=== PATIENT | male | born 1945 | race Caucasian/White ===

== ENCOUNTER 2019-01-26 16:10 | Inpatient (IN) | payer MEDICARE, OTHER | END 2019-01-30 10:15 | disposition home or self-care (01) | LOC: ER 16:10 → TELE 16:11 → TELE-CENTR 23:00 | DX: I95.9 Hypotension, unspecified (principal); I50.42 Chronic combined systolic (congestive) and diastolic (congestive) heart failure; N39.0 Urinary tract infection, site not specified; N28.9 Disorder of kidney and ureter, unspecified; R55 Syncope and collapse; J44.9 Chronic obstructive pulmonary disease, unspecified ==

== ENCOUNTER 2019-06-02 11:25 | Emergency (ER) | payer SELFPAY ==
[~2019-06-02] VITALS: Ht 182.9 cm; Wt 77.1 kg
[~2019-06-02 11:25] MED LIST: ENAL10TA PO; HYDR25TA4 PO; MET50T PO
[2019-06-02] MEDS ORDERED: cloNIDine HCL 0.1 MG TAB PO ONE (11:45)
[2019-06-02 12:28] LABS: Basophils # (auto) 0 uL; Basophils % (auto) 0.4 % (0.0-2.0); Eosinophils # (auto) 0 uL; Eosinophils % (auto) 0.8 % (0.0-7.0); Hematocrit 37.9 % (41.0-53.0); Lymphocytes # (auto) 1.6 uL; Lymphocytes % (auto) 30.5 % (10.0-50.0); Mean Corpuscular Hemoglobin 32.9 pg (28.0-32.0); Mean Corpuscular Hgb Conc. 34.5 g/dL (32.0-36.0); Mean Corpuscular Volume 95.4 fL (80.0-100.0); Monocytes # (auto) 0.5 uL; Monocytes % (auto) 10.1 % (0.0-12.0); Neutrophils # (auto) 3.1 uL; Neutrophils % (auto) 58.2 % (37.0-80.0); Nucleated Red Blood Cells % 0.1 %; Platelet Count (auto) 201 10^3/uL (140-450); Red Blood Cells 3.97 10^6/uL (4.5-5.90); Red Cell Distribution Width 14.2 % (11.8-14.3); White Blood Cell 5.3 10^3/uL (4.4-10.8)
[2019-06-02 12:50] LABS: Albumin 3.8 g/dL (3.4-5.0); Anion Gap 6 (5-15); Blood Urea Nitrogen 32 mg/dL (7-18); Calcium 8.6 mg/dL (8.5-10.1); Carbon Dioxide 26 mmol/L (21-32); Chloride 110 mmol/L (98-107); Glucose 91 mg/dL (74-106); Potassium 4.2 mmol/L (3.5-5.1); Sodium 142 mmol/L (136-145)
[2019-06-02 12:55] LABS: Alanine Aminotransferase 40 U/L (16-61); Alkaline Phosphatase 111 U/L (45-117); Aspartate Aminotransferase 21 U/L (15-37); BUN/Creatinine Ratio 19.5; Bilirubin, Total 0.7 mg/dL (0.2-1.0); GFR African American 53 mL/min; GFR Non-African American 44 mL/min; Total Protein 7.5 g/dL (6.4-8.2)
[2019-06-02 15:37] VITALS: BP 130/92
== END 2019-06-02 15:38 | disposition home or self-care (01) ==
LOC: EDBD 11:25 → ER 11:25
DX: I13.0 Hypertensive heart and chronic kidney disease with heart failure and stage 1 through stage 4 chronic kidney disease, or unspecified chronic kidney disease (principal); N18.3 Chronic kidney disease, stage 3 (moderate); I50.9 Heart failure, unspecified; K21.9 Gastro-esophageal reflux disease without esophagitis
CPT/HCPCS: 36415; 80053; 84484; 85025

== ENCOUNTER 2019-09-21 08:55 | Emergency (ER) | payer OTHER ==
[~2019-09-21] VITALS: Ht 180.3 cm; Wt 99.8 kg
[2019-09-21] MEDS ORDERED: ONDANSETRON HCL 4 MG/2 ML VIAL IV ONE (09:30)
[2019-09-21] MEDS ORDERED: MORPHINE SULFATE 4 MG/ML SYR/VIAL IV ONE (09:30)
[2019-09-21 10:27] LABS: Urine Bacteria NONE SEEN /hpf (None Seen); Urine Blood Negative /uL (Negative); Urine Specific Gravity 1.015 (1.001-1.035); Urine WBC 51 /hpf (0 - 3)
[2019-09-21 11:00] VITALS: BP 125/83
[2019-09-21] MEDS ORDERED: cefTRIAXone 1GM/50ML D5W 50 ML IV ONE (11:15)
== END 2019-09-21 12:25 | disposition home or self-care (01) ==
LOC: EDBD 08:55 → ER 08:55
DX: N45.1 Epididymitis (principal); N50.812 Left testicular pain; N50.811 Right testicular pain; I11.0 Hypertensive heart disease with heart failure; I50.9 Heart failure, unspecified; J44.9 Chronic obstructive pulmonary disease, unspecified; K21.9 Gastro-esophageal reflux disease without esophagitis; Z87.442 Personal history of urinary calculi; Z87.440 Personal history of urinary (tract) infections
CPT/HCPCS: 76870; 81001; 96365; 96375; 99284; J0696; J2270; J2405

== ENCOUNTER 2019-10-21 09:45 | Inpatient (IN) | payer MEDICARE, OTHER ==
[~2019-10-21] VITALS: Ht 182.9 cm; Wt 76.0 kg
[2019-10-21] MEDS ORDERED: SODIUM CHLORIDE 0.9% 1,000 ML IV ONE ×2 (10:03)
[2019-10-21 11:04] LABS: Albumin 3.5 g/dL (3.4-5.0); Calcium 8.6 mg/dL (8.5-10.1); Chloride 110 mmol/L (98-107); Potassium 4.4 mmol/L (3.5-5.1); Sodium 140 mmol/L (136-145)
[2019-10-21 11:13] LABS: Alanine Aminotransferase 23 U/L (16-61); Alkaline Phosphatase 79 U/L (45-117); Anion Gap 6 (5-15); Aspartate Aminotransferase 19 U/L (15-37); BUN/Creatinine Ratio 15.6; Bilirubin, Total 1.7 mg/dL (0.2-1.0); Blood Urea Nitrogen 30 mg/dL (7-18); Carbon Dioxide 24 mmol/L (21-32); GFR African American 44 mL/min; GFR Non-African American 36 mL/min; Glucose 104 mg/dL (74-106); Total Protein 7.5 g/dL (6.4-8.2)
[2019-10-21 13:56] LABS: Basophils # (auto) 0 10 ^3/uL (0-0.2); Basophils % (auto) 0.3 % (0.0-2.0); Eosinophils # (auto) 0 10 ^3/uL (0-0.8); Eosinophils % (auto) 0.1 % (0.0-7.0); Hematocrit 36.1 % (41.0-53.0); Hemoglobin 12.1 g/dL (13.5-17.5); Lymphocytes # (auto) 0.9 10 ^3/uL (0.4-5.4); Lymphocytes % (auto) 15.2 % (10.0-50.0); Mean Corpuscular Hemoglobin 31.2 pg (28.0-32.0); Mean Corpuscular Hgb Conc. 33.5 g/dL (32.0-36.0); Mean Corpuscular Volume 93.3 fL (80.0-100.0); Monocytes # (auto) 0.5 10 ^3/uL (0-1.3); Monocytes % (auto) 8.2 % (0.0-12.0); Neutrophils # (auto) 4.5 10 ^3/uL (1.6-8.6); Neutrophils % (auto) 76.2 % (37.0-80.0); Platelet Count (auto) 141 10^3/uL (140-450); Red Blood Cells 3.87 10^6/uL (4.5-5.90); Red Cell Distribution Width 13.9 % (11.8-14.3)
[2019-10-21 14:21] LABS: Urine Bacteria NONE SEEN /hpf (None Seen); Urine Blood Negative /uL (Negative); Urine Mucus FEW (None Seen); Urine Specific Gravity 1.016 (1.001-1.035); Urine WBC 21 /hpf (0 - 3)
[2019-10-21] MEDS ORDERED: PROMETHAZINE HCL 25 MG/ML 1ML IV PRN (15:15)
[2019-10-21] MEDS ORDERED: TEMAZEPAM 15 MG CAP PO PRN (15:15)
[2019-10-21] MEDS ORDERED: ENOXAPARIN SOD 80 MG/0.8ML SYRINGE SC ONE (15:15)
[2019-10-21] MEDS ORDERED: LACTULOSE 20Gm/30ML SOLN PO PRN (15:15)
[2019-10-21] MEDS ORDERED: cefTRIAXone 1GM/50ML D5W 50 ML IV ONE (15:15)
[2019-10-21] MEDS ORDERED: ALBUTEROL SULF 2.5 MG/0.5ML(0.5%) NEB SOLN NEB PRN (15:15)
[2019-10-21] MEDS ORDERED: ACETAMINOPHEN 500 MG TAB PO PRN (15:15)
[2019-10-21] MEDS ORDERED: MORPHINE SULF INJ 2 MG/ML SYRINGE 1ML IV PRN (15:15)
[2019-10-21] MEDS ORDERED: NITROGLYCERIN 0.4 MG SL TAB SL PRN (15:15)
[2019-10-21 15:41] VITALS: BP 132/87
[2019-10-21] MEDS ORDERED: OSELTAMIVIR 75 MG CAP PO ONE (16:00)
[2019-10-21] MEDS ORDERED: OSELTAMIVIR 30 MG CAP PO SCH ×2 (16:15→22:00)
[2019-10-21] MEDS: methylPREDNISolone SOD SUCC 40 MG/ML VL IV SCH (16:20)
[2019-10-21] MEDS: traMADol HCL 50 MG TAB PO PRN (16:22)
[2019-10-21 16:55] VITALS: BP 124/76
--- NOTE | 2019-10-21 16:55 | NUR ---
Telemetry admit from ER LAZARA CARDENAS admitted to Telemetry unit after SBAR received. Patient oriented to RADHA DONOVANRN primary RN, unit, 287 room, A bed, and unit policies regarding patient care and visiting hours. Patient now on continuous telemetry monitoring, tele box #69 and telemetry reading on arrival to unit is SR 90. Patient placed on bedside oxygen, weighed by bedscale and encouraged to call if they need something. All questions and concerns addressed, patient verbalized understanding.
[2019-10-21 17:00] VITALS: BP 124/76
[2019-10-21] MEDS: SODIUM CHLORIDE 0.9% 1,000 ML IV SCH (17:00)
[2019-10-21] MEDS: IPRATROPIUM BROM 0.5 MG/2.5ML INH SOL NEB SCH (19:00)
[2019-10-21] MEDS: ALBUTEROL SULF 2.5 MG/0.5ML(0.5%) NEB SOLN NEB SCH (19:00)
--- NOTE | 2019-10-21 19:40 | NUR ---
Opening Shift Note Assumed care of patient, awake and alert. No S/S of distress/SOB or pain. Instructed on POC and to call for assist PRN. Bed in lowest position, call light within reach, side rails x2. Fall precautions in place. Will continue to monitor for changes Q1hr and PRN.
[2019-10-21 22:00] VITALS: BP 104/76
[2019-10-21] MEDS: FAMOTIDINE 20 MG TAB PO SCH (22:04)
[2019-10-21] MEDS: ENOXAPARIN SOD 80 MG/0.8ML SYRINGE SC SCH (22:04)
[2019-10-21 22:52] VITALS: BP 135/100
[2019-10-22] MEDS: IPRATROPIUM BROM 0.5 MG/2.5ML INH SOL NEB SCH ×4 (00:07→18:42)
[2019-10-22] MEDS: ALBUTEROL SULF 2.5 MG/0.5ML(0.5%) NEB SOLN NEB SCH ×4 (00:07→18:43)
[2019-10-22] MEDS: methylPREDNISolone SOD SUCC 40 MG/ML VL IV SCH ×2 (02:58→15:26)
[2019-10-22] MEDS: SODIUM CHLORIDE 0.9% 1,000 ML IV SCH ×3 (02:58→21:07)
[2019-10-22 05:00] VITALS: BP 134/78
[2019-10-22 06:04] LABS: Basophils # (auto) 0 10 ^3/uL (0-0.2); Basophils % (auto) 0.1 % (0.0-2.0); Eosinophils # (auto) 0 10 ^3/uL (0-0.8); Hematocrit 34.1 % (41.0-53.0); Hemoglobin 11.8 g/dL (13.5-17.5); Lymphocytes # (auto) 0.5 10 ^3/uL (0.4-5.4); Lymphocytes % (auto) 7.8 % (10.0-50.0); Mean Corpuscular Hemoglobin 31.9 pg (28.0-32.0); Mean Corpuscular Hgb Conc. 34.4 g/dL (32.0-36.0); Mean Corpuscular Volume 92.6 fL (80.0-100.0); Monocytes # (auto) 0.3 10 ^3/uL (0-1.3); Monocytes % (auto) 4.4 % (0.0-12.0); Neutrophils # (auto) 5.1 10 ^3/uL (1.6-8.6); Neutrophils % (auto) 87.7 % (37.0-80.0); Nucleated Red Blood Cells % 0.1 %; Platelet Count (auto) 127 10^3/uL (140-450); Red Blood Cells 3.69 10^6/uL (4.5-5.90); Red Cell Distribution Width 13.9 % (11.8-14.3); White Blood Cell 5.8 10^3/uL (4.4-10.8)
[2019-10-22 06:14] LABS: Calcium 8.2 mg/dL (8.5-10.1); Potassium 4.7 mmol/L (3.5-5.1)
[2019-10-22 06:17] LABS: Albumin 2.9 g/dL (3.4-5.0); BUN/Creatinine Ratio 16.7
[2019-10-22 06:20] LABS: Total Protein 6.7 g/dL (6.4-8.2)
[2019-10-22 09:00] VITALS: BP 125/72
[2019-10-22] MEDS: cefTRIAXone 1GM/50ML D5W 50 ML IV SCH (09:18)
[2019-10-22] MEDS: FAMOTIDINE 20 MG TAB PO SCH ×2 (09:19→21:48)
[2019-10-22] MEDS: traMADol HCL 50 MG TAB PO PRN ×3 (09:19→21:50)
[2019-10-22] MEDS: ENOXAPARIN SOD 80 MG/0.8ML SYRINGE SC SCH ×2 (09:19→21:49)
[2019-10-22 13:00] VITALS: BP 109/55
--- NOTE | 2019-10-22 13:23 | NUR ---
Doctor Lees rounding.
[2019-10-22] MEDS ORDERED: guaiFENesin-DM 100/10mg/5ml SYR PO PRN (15:30)
[2019-10-22 17:00] VITALS: BP 116/68
--- NOTE | 2019-10-22 18:40 | NUR ---
Doctor Martinez miller.
--- NOTE | 2019-10-22 19:30 | NUR ---
Opening Shift Note Assumed care of patient, awake and alert. No S/S of distress/SOB or pain. Instructed on POC and to call for assist PRN. Bed in lowest locked position, call light within reach, side rails up X2, fall precautions in place. Will continue to monitor for changes Q1hr and PRN.
[2019-10-22 21:43] VITALS: BP 120/81
[2019-10-23] MEDS: ALBUTEROL SULF 2.5 MG/0.5ML(0.5%) NEB SOLN NEB SCH ×3 (00:36→11:29)
[2019-10-23] MEDS: IPRATROPIUM BROM 0.5 MG/2.5ML INH SOL NEB SCH ×3 (00:36→11:30)
[2019-10-23 02:18] VITALS: BP 162/104
[2019-10-23 05:37] VITALS: BP 150/90
[2019-10-23] MEDS: methylPREDNISolone SOD SUCC 40 MG/ML VL IV SCH (06:05)
[2019-10-23 08:00] VITALS: BP 139/93
--- NOTE | 2019-10-23 08:00 | NUR ---
Opening Shift Note Assumed care of patient, patient comfortably resting in bed, awake and alert. No S/S of distress/SOB or pain. Guan catheter intact and draining to gravity. Instructed on POC and to call for assist PRN. Bed at lowest locked position and call light within reach. Will continue to monitor for changes Q1hr and PRN.
[2019-10-23 08:31] VITALS: BP 139/93
[2019-10-23] MEDS: SODIUM CHLORIDE 0.9% 1,000 ML IV SCH (09:00)
--- NOTE | 2019-10-23 09:15 | NUR ---
Patient c/o abdominal pain that radiates to the neck. Patient rates pain level 6/10, will administer medications per MD orders. Will continue to monitor PRN. Addendum: 10/23/19 at 1147 by Edyta Paredes RN *10:31 Pain reassessment Patient is comfortably resting in bed, states pain is 2/10.
[2019-10-23] MEDS: cefTRIAXone 1GM/50ML D5W 50 ML IV SCH (09:30)
[2019-10-23] MEDS: FAMOTIDINE 20 MG TAB PO SCH (09:31)
[2019-10-23] MEDS: traMADol HCL 50 MG TAB PO PRN (09:31)
[2019-10-23] MEDS: ENOXAPARIN SOD 80 MG/0.8ML SYRINGE SC SCH (10:00)
--- NOTE | 2019-10-23 10:20 | NUR ---
Dr. Alicia at bedside.
--- NOTE | 2019-10-23 11:59 | NUR ---
paged for patient companion social media director regarding patient's discharge and home health. Addendum: 10/23/19 at 1235 by Edyta Paredes RN Sara storage worker asked me to fax patient's H&P, discharge order and face sheet to [facility] fax #[phone], phone # [phone]. Addendum: 10/23/19 at 1420 by Edyta Paredes RN All requested paperwork faxed to [facility] fax [phone]
[2019-10-23 12:38] VITALS: BP 136/83
--- NOTE | 2019-10-23 13:20 | NUR ---
Patient c/o elva britt MD for further orders. Addendum: 10/23/19 at 1322 by Edyta Paredes RN order received for one time order 4MG Zofran PO, orders read back and verified
[2019-10-23] MEDS ORDERED: ONDANSETRON ODT 4 MG TAB PO ONE (13:30)
--- NOTE | 2019-10-23 14:13 | NUR ---
Discharge instructions given as ordered. Encourage to follow up with PMD as instructed. All questions and concerns addressed. Patient verbalized understanding. Medication reconciliation form completed and copy given to patient. IV removed with catheter intact, pressure dressing applied. Per doctor's orders patient was discharged with collier catheter, education provided, Patient acknowledged understanding. Telemetry unit returned to ICU. Patient taken to main lobby via wheelchair with all personal belongings, per patients request. Granddaughter Eunice in route. No c/o nausea/vomiting. No c/o pain. No distress noted at time of departure.
--- NOTE | 2019-10-25 09:53 | NUR ---
I called [facility] and spoke with Stacey, she said this patient was with them previously and they can accept patient back on service-I faxed requested order, face sheet and H&P to [facility] [phone].
== END 2019-10-23 14:20 | disposition home health service (06) | DRG 190 ==
LOC: EDBD 09:45 → ER 09:45 → EDUNIT# 09:45 → TELE 09:46 → TELE-WESTW 16:52
PROVIDERS: ADMIT Internal Medicine; ATTEND Family Medicine
DX: J44.1 Chronic obstructive pulmonary disease with (acute) exacerbation (principal); N18.6 End stage renal disease; I13.2 Hypertensive heart and chronic kidney disease with heart failure and with stage 5 chronic kidney disease, or end stage renal disease; N17.9 Acute kidney failure, unspecified; I95.9 Hypotension, unspecified; N32.3 Diverticulum of bladder; I50.9 Heart failure, unspecified; K21.9 Gastro-esophageal reflux disease without esophagitis; E86.0 Dehydration; R33.9 Retention of urine, unspecified; Z79.899 Other long term (current) drug therapy; Z85.9 Personal history of malignant neoplasm, unspecified; Z81.8 Family history of other mental and behavioral disorders; Z87.891 Personal history of nicotine dependence; Z85.46 Personal history of malignant neoplasm of prostate
CPT/HCPCS: 36415; 70450; 71045; 74176; 78582; 80053; 81001; 83605; 83880; 84484; 85025; 85379; 87040; 87070; 87081; 87086; 87205; 87804; 93005; 94640; 96361; 96365; 96372; G0378; G9035; J0696; Q0162

== ENCOUNTER 2019-10-24 11:21 | Emergency (ER) | payer MEDICARE, OTHER ==
[~2019-10-24] VITALS: Ht 182.9 cm; Wt 68.0 kg
[2019-10-24] MEDS ORDERED: LIDOCAINE 2% JELLY 11ml (GLYDO) UR ONE (12:15)
[2019-10-24 12:28] VITALS: BP 136/87
[2019-10-24] MEDS ORDERED: ACETAMINOPHEN 325 MG TAB PO ONE (12:30)
[2019-10-24 12:33] LABS: Urine Bacteria NONE SEEN /hpf (None Seen); Urine Blood TRACE /uL (Negative); Urine Hyaline Cast FEW /lpf (0 - 2); Urine Mucus FEW (None Seen); Urine Specific Gravity 1.009 (1.001-1.035); Urine WBC 2 /hpf (0 - 3)
== END 2019-10-24 13:28 | disposition home or self-care (01) ==
LOC: ER 11:21
DX: T83.091A Other mechanical complication of indwelling urethral catheter, initial encounter (principal); N39.0 Urinary tract infection, site not specified; N32.3 Diverticulum of bladder; J44.9 Chronic obstructive pulmonary disease, unspecified; E11.9 Type 2 diabetes mellitus without complications; I11.0 Hypertensive heart disease with heart failure; I50.9 Heart failure, unspecified; Z87.891 Personal history of nicotine dependence; Y92.89 Other specified places as the place of occurrence of the external cause
CPT/HCPCS: 51702; 81001

== ENCOUNTER → 2019-11-01 | Emergency (ER) | payer OTHER ==
[~2019-11-01] VITALS: Ht 182.9 cm; Wt 72.6 kg
[~2019-11-01] MED LIST changes: +CHOL20009 PO; -ENAL10TA PO; +ENAL10TA12 PO; +LEVO500T21 PO
[2019-11-01 15:20] VITALS: BP 132/82
== END | disposition home or self-care (01) ==
LOC: ER 15:09
DX: T83.018A Breakdown (mechanical) of other urinary catheter, initial encounter (principal); I11.0 Hypertensive heart disease with heart failure; I50.9 Heart failure, unspecified; J44.9 Chronic obstructive pulmonary disease, unspecified; K21.9 Gastro-esophageal reflux disease without esophagitis; Z87.891 Personal history of nicotine dependence; Z87.442 Personal history of urinary calculi
CPT/HCPCS: 51702

== ENCOUNTER 2019-11-03 10:47 | Emergency (ER) | payer OTHER ==
[~2019-11-03] VITALS: Ht 182.9 cm; Wt 69.9 kg
[~2019-11-03 10:47] MED LIST changes: -CHOL20009 PO; -LEVO500T21 PO
[2019-11-03 11:06] VITALS: BP 138/84
== END 2019-11-03 11:30 | disposition home or self-care (01) ==
LOC: ER 10:47
DX: Z46.6 Encounter for fitting and adjustment of urinary device (principal); I11.0 Hypertensive heart disease with heart failure; I50.9 Heart failure, unspecified; J44.9 Chronic obstructive pulmonary disease, unspecified; K21.9 Gastro-esophageal reflux disease without esophagitis; Z87.891 Personal history of nicotine dependence; Z87.442 Personal history of urinary calculi
CPT/HCPCS: 81002

== ENCOUNTER → 2019-12-02 | Outpatient (CLI) | payer OTHER ==
[~2019-12-02] MED LIST changes: +ENAL10TA PO; -ENAL10TA12 PO
== END | disposition home or self-care (01) ==
LOC: LAB 16:00
PROVIDERS: ATTEND Urology
DX: N39.0 Urinary tract infection, site not specified (principal)
CPT/HCPCS: 87086

== ENCOUNTER 2019-12-28 08:47 | Inpatient (IN) | payer OTHER, MEDICARE ==
[~2019-12-28] VITALS: Ht 182.9 cm; Wt 80.0 kg
[2019-12-28] MEDS ORDERED: SODIUM CHLORIDE 0.9% 1,000 ML IV ONE ×3 (09:08)
[2019-12-28] MEDS ORDERED: methylPREDNISolone SOD SUCC 125 MG/2 ML VL IV ONE (09:15)
[2019-12-28] MEDS ORDERED: AZITHROMYCIN 500MG/ 250ML 250 ML IV ONE (09:15)
[2019-12-28] MEDS ORDERED: cefTRIAXone 1GM/50ML D5W 50 ML IV ONE (09:15)
[2019-12-28] MEDS ORDERED: ONDANSETRON HCL 4 MG/2 ML VIAL ONE (09:27)
[2019-12-28] MEDS ORDERED: ONDANSETRON HCL 4 MG/2 ML VIAL IV ONE (09:30)
[2019-12-28] MEDS ORDERED: MORPHINE SULF INJ 2 MG/ML SYRINGE 1ML IV ONE (09:30)
[2019-12-28 09:40] LABS: Basophils # (auto) 0 10 ^3/uL (0-0.2); Basophils % (auto) 0.2 % (0.0-2.0); Eosinophils # (auto) 0 10 ^3/uL (0-0.8); Hematocrit 41.2 % (41.0-53.0); Hemoglobin 13.7 g/dL (13.5-17.5); Lymphocytes # (auto) 0.7 10 ^3/uL (0.4-5.4); Lymphocytes % (auto) 12.5 % (10.0-50.0); Mean Corpuscular Hgb Conc. 33.3 g/dL (32.0-36.0); Mean Corpuscular Volume 93.1 fL (80.0-100.0); Monocytes # (auto) 0.5 10 ^3/uL (0-1.3); Neutrophils # (auto) 4.6 10 ^3/uL (1.6-8.6); Neutrophils % (auto) 78.3 % (37.0-80.0); Nucleated Red Blood Cells % 0.2 %; Platelet Count (auto) 163 10^3/uL (140-450); Red Blood Cells 4.42 10^6/uL (4.5-5.90); Red Cell Distribution Width 14.3 % (11.8-14.3); White Blood Cell 5.9 10^3/uL (4.4-10.8)
[2019-12-28 10:01] LABS: Albumin 3.7 g/dL (3.4-5.0); Anion Gap 6 (5-15); Blood Urea Nitrogen 32 mg/dL (7-18); Calcium 8.5 mg/dL (8.5-10.1); Carbon Dioxide 23 mmol/L (21-32); Chloride 109 mmol/L (98-107); Glucose 99 mg/dL (74-106); Potassium 4.6 mmol/L (3.5-5.1); Sodium 138 mmol/L (136-145)
[2019-12-28 10:06] LABS: Urine Bacteria MOD /hpf (None Seen); Urine Blood 3+ /uL (Negative); Urine Specific Gravity 1.017 (1.001-1.035); Urine WBC 1518 /hpf (0 - 3); Urine WBC Clumps PRESENT /hpf (None Seen)
[2019-12-28 10:09] LABS: Alanine Aminotransferase 21 U/L (16-61); Alkaline Phosphatase 112 U/L (45-117); Aspartate Aminotransferase 17 U/L (15-37); BUN/Creatinine Ratio 17.2; Bilirubin, Total 1.2 mg/dL (0.2-1.0); GFR African American 46 mL/min; GFR Non-African American 38 mL/min; Lactate Dehydrogenase 168 U/L (87-241); Total Protein 7.9 g/dL (6.4-8.2)
[2019-12-28 10:15] LABS: INR 1.02 (0.9-1.15); Partial Thromboplastin Time 27.1 sec (23.64-32.05)
[2019-12-28] MEDS ORDERED: IPRATROPIUM BROM 0.5 MG/2.5ML INH SOL NEB PRN (11:00)
[2019-12-28] MEDS ORDERED: ONDANSETRON HCL 4 MG/2 ML VIAL IV PRN (11:00)
[2019-12-28] MEDS ORDERED: ALBUTEROL SULF 2.5 MG/0.5ML(0.5%) NEB SOLN NEB PRN (11:00)
[2019-12-28] MEDS ORDERED: MORPHINE SULF INJ 2 MG/ML SYRINGE 1ML IV PRN ×2 (11:00)
[2019-12-28] MEDS ORDERED: NITROGLYCERIN 0.4 MG SL TAB SL PRN (11:00)
[2019-12-28] MEDS: SODIUM CHLORIDE 0.9% 1,000 ML IV SCH (11:04)
[2019-12-28 11:15] VITALS: BP 146/96
[2019-12-28] MEDS: ACETAMINOPHEN 500 MG TAB PO PRN (11:25)
--- NOTE | 2019-12-28 12:50 | NUR ---
MS admit from ER RONALDLAZARA admitted to med-surg after SBAR received. Patient oriented to Sherice Valladares, RN primary RN, unit, room, bed, and unit policies regarding patient care and visiting hours. Patient weighed by bedscale and encouraged to call if they need something. All questions and concerns addressed, patient verbalized understanding. Bed is set in lowest locked position with side rails up x2 for safety and call light is within reach.
[2019-12-28 13:00] VITALS: BP 110/71
[2019-12-28] MEDS ORDERED: CHOL20009 PO (16:16)
[2019-12-28 16:36] VITALS: BP 99/70
--- NOTE | 2019-12-28 17:58 | NUR ---
MRSA swab obtained and sent to lab
--- NOTE | 2019-12-28 18:38 | NUR ---
PT ON ROOM AIR EATING DINNER WITH NO DISTRESS NOTED. SPO2 94% HR 90, RR 16. PT DENIES SOB AT THIS TIME. BS CLEAR AND DECREASED. NO TX GIVEN AT THIS TIME.
[2019-12-28] MEDS: METOPROLOL TARTRATE 50 MG TAB PO SCH (21:53)
[2019-12-28 22:00] VITALS: BP 107/73
[2019-12-29] MEDS: SODIUM CHLORIDE 0.9% 1,000 ML IV SCH ×3 (02:26→16:54)
[2019-12-29 05:00] VITALS: BP 110/70
[2019-12-29 05:48] LABS: Basophils # (auto) 0 10 ^3/uL (0-0.2); Basophils % (auto) 0.1 % (0.0-2.0); Eosinophils # (auto) 0 10 ^3/uL (0-0.8); Hematocrit 34.5 % (41.0-53.0); Hemoglobin 11.8 g/dL (13.5-17.5); Lymphocytes # (auto) 0.6 10 ^3/uL (0.4-5.4); Lymphocytes % (auto) 9.8 % (10.0-50.0); Mean Corpuscular Hemoglobin 31.4 pg (28.0-32.0); Mean Corpuscular Hgb Conc. 34.1 g/dL (32.0-36.0); Monocytes # (auto) 0.7 10 ^3/uL (0-1.3); Monocytes % (auto) 11.2 % (0.0-12.0); Neutrophils # (auto) 5.1 10 ^3/uL (1.6-8.6); Neutrophils % (auto) 78.9 % (37.0-80.0); Platelet Count (auto) 140 10^3/uL (140-450); Red Blood Cells 3.75 10^6/uL (4.5-5.90); Red Cell Distribution Width 13.9 % (11.8-14.3); White Blood Cell 6.5 10^3/uL (4.4-10.8)
[2019-12-29 06:07] LABS: Potassium 4.7 mmol/L (3.5-5.1)
[2019-12-29 06:13] LABS: BUN/Creatinine Ratio 21.5
--- NOTE | 2019-12-29 06:40 | NUR ---
Respiratory note: PT ASSESSED FOR PRN TX. HR 66, RR 16, POX 99% ON RA, BS ARE CLR/DIM. NO SOB OR DISTRESS NOTED AT THIS TIME. PT WAS NOTIFY TO HAVE RN PAGE RT FOR NEEDED MN TX.
[2019-12-29 09:00] VITALS: BP 127/67
[2019-12-29] MEDS: cefTRIAXone 1GM/50ML D5W 50 ML IV SCH (09:00)
[2019-12-29] MEDS: HYDROcodone-ACET 5/325MG TAB PO PRN ×2 (09:49→20:13)
[2019-12-29] MEDS: FAMOTIDINE 20 MG TAB PO SCH (09:49)
[2019-12-29] MEDS: METOPROLOL TARTRATE 50 MG TAB PO SCH ×2 (09:49→22:08)
[2019-12-29 13:00] VITALS: BP 118/72
--- NOTE | 2019-12-29 18:07 | NUR ---
Respiratory note: ASSESSMENT FOR PRN MED NEB TX. PT PRESENTING NO RESPIRATORY DISTRESS AT THIS TIME. HR 63, SPO2 94% ON ROOM AIR, RR 16, B/S DIMINISHED. MED NEB TX NOT INDICATED AT THIS TIME. PT AWARE OF PRN TX AND TO HAVE RT PAGED IF NEEDED. WILL CONTINUE TO MONITOR.
[2019-12-29 22:00] VITALS: BP 124/72
--- NOTE | 2019-12-30 00:05 | NUR ---
IV removal IV DC'd with sterile technique, catheter fully intact. Pressure dressing applied to site. Patient tolerated procedure well.
--- NOTE | 2019-12-30 00:08 | NUR ---
IV insertion IV access obtained, via clean sterile technique by inserting 18 gauge catheter at right forearm after 1 attempt. IV secured properly. No trauma to site. Patient tolerated procedure well.
[2019-12-30 05:00] VITALS: BP 148/91
--- NOTE | 2019-12-30 07:30 | NUR ---
Opening Shift Note Assumed care of patient, awake and alert. No S/S of distress/SOB or pain. Instructed on POC and to call for assist PRN, will continue to monitor for changes Q1hr and PRN.
[2019-12-30 09:00] VITALS: BP 130/92
[2019-12-30] MEDS: cefTRIAXone 1GM/50ML D5W 50 ML IV SCH (09:28)
[2019-12-30] MEDS: METOPROLOL TARTRATE 50 MG TAB PO SCH (09:29)
[2019-12-30] MEDS: FAMOTIDINE 20 MG TAB PO SCH (09:32)
[2019-12-30] MEDS: ACETAMINOPHEN 500 MG TAB PO PRN (09:40)
[2019-12-30] MEDS: SODIUM CHLORIDE 0.9% 1,000 ML IV SCH ×2 (09:41→13:00)
[2019-12-30 13:00] VITALS: BP 124/77
--- NOTE | 2019-12-30 14:10 | NUR ---
Assessment Patient is a 74-year-old male who is alert and oriented. Prior to admission patient lived with friends and functioned independently. Patient can care for his own ADLs. Patient informed me he has a cane for home use. Per patient he will return to his prior living arrangements post discharge and family will transport patient home. Advised patient there is a Social Service consult to resume home health service. Per patient he is on service with [facility] [phone]. Informed patient clinical information will be faxed to agency. Informed patient he has the right to participate in all discharge planning. Patient verbalized understanding and agreed to discharge plan home. Per Jorge with [facility] they will resume service within 24-48hrs upon d/. Addendum: 12/30/19 at 1414 by STEPHANIE VILCHIS Amended: Links added.
[2019-12-30 14:43] VITALS: BP 124/77
[2019-12-30] MEDS: HYDROcodone-ACET 5/325MG TAB PO PRN (16:25)
--- NOTE | 2019-12-30 16:56 | NUR ---
Discharge instructions given as ordered. Encourage to follow up with PMD as instructed. All questions and concerns addressed. Patient verbalized understanding. Medication reconciliation form completed and copy given to patient. IV removed with catheter intact, pressure dressing applied, pt came in with nando from home. Patient taken to vehicle via wheelchair with all personal belongings, accompanied by staff and family member. No distress noted at time of departure.
== END 2019-12-30 17:00 | disposition home health service (06) | DRG 690 ==
LOC: ER 08:47 → EDBD 08:47 → OVERFLOW 08:48 → CENTRAL 12:53
PROVIDERS: ADMIT Nurse Practitioner Acute Care; ATTEND Family Medicine
DX: N30.00 Acute cystitis without hematuria (principal); J44.1 Chronic obstructive pulmonary disease with (acute) exacerbation; I13.0 Hypertensive heart and chronic kidney disease with heart failure and stage 1 through stage 4 chronic kidney disease, or unspecified chronic kidney disease; N18.3 Chronic kidney disease, stage 3 (moderate); N32.3 Diverticulum of bladder; K21.9 Gastro-esophageal reflux disease without esophagitis; I50.9 Heart failure, unspecified; Z82.0 Family history of epilepsy and other diseases of the nervous system; Z85.46 Personal history of malignant neoplasm of prostate; Z87.440 Personal history of urinary (tract) infections; Z87.442 Personal history of urinary calculi; Z87.891 Personal history of nicotine dependence
CPT/HCPCS: 36415; 71045; 80048; 80053; 81001; 82728; 83605; 83615; 83880; 84484; 85025; 85610; 85730; 87040; 87081; 87086; 87088; 87186; 93005; 99291; G0378; J0696; J2405

== ENCOUNTER 2020-03-21 09:06 | Emergency (ER) | payer MEDICARE, OTHER ==
[~2020-03-21] VITALS: Ht 182.9 cm; Wt 72.6 kg
[~2020-03-21 09:06] MED LIST changes: +CHOL20009 PO; -ENAL10TA PO; +ENAL10TA12 PO
[2020-03-21 10:01] LABS: Basophils # (auto) 0 10 ^3/uL (0-0.2); Basophils % (auto) 0.2 % (0.0-2.0); Eosinophils # (auto) 0 10 ^3/uL (0-0.8); Eosinophils % (auto) 0.1 % (0.0-7.0); Hematocrit 37.6 % (41.0-53.0); Hemoglobin 12.5 g/dL (13.5-17.5); Lymphocytes # (auto) 0.9 10 ^3/uL (0.4-5.4); Lymphocytes % (auto) 17.1 % (10.0-50.0); Mean Corpuscular Hemoglobin 31.3 pg (28.0-32.0); Mean Corpuscular Hgb Conc. 33.4 g/dL (32.0-36.0); Mean Corpuscular Volume 93.8 fL (80.0-100.0); Monocytes # (auto) 0.6 10 ^3/uL (0-1.3); Monocytes % (auto) 11.1 % (0.0-12.0); Neutrophils # (auto) 3.8 10 ^3/uL (1.6-8.6); Neutrophils % (auto) 71.5 % (37.0-80.0); Platelet Count (auto) 179 10^3/uL (140-450); Red Cell Distribution Width 13.8 % (11.8-14.3); White Blood Cell 5.3 10^3/uL (4.4-10.8)
[2020-03-21 10:28] LABS: Albumin 3.2 g/dL (3.4-5.0); Anion Gap 5 (5-15); Blood Urea Nitrogen 30 mg/dL (7-18); Calcium 8.1 mg/dL (8.5-10.1); Carbon Dioxide 24 mmol/L (21-32); Chloride 111 mmol/L (98-107); Glucose 90 mg/dL (74-106); Potassium 4.3 mmol/L (3.5-5.1); Sodium 140 mmol/L (136-145)
[2020-03-21 10:33] LABS: Alanine Aminotransferase 31 U/L (16-61); Alkaline Phosphatase 113 U/L (45-117); Aspartate Aminotransferase 19 U/L (15-37); BUN/Creatinine Ratio 15.5; Bilirubin, Total 1.5 mg/dL (0.2-1.0); GFR African American 44 mL/min; GFR Non-African American 36 mL/min; Total Protein 6.9 g/dL (6.4-8.2)
[2020-03-21 11:23] LABS: Urine Bacteria FEW /hpf (None Seen); Urine Blood 2+ /uL (Negative); Urine Mucus FEW (None Seen); Urine Specific Gravity 1.013 (1.001-1.035); Urine WBC 263 /hpf (0 - 3)
[2020-03-21] MEDS ORDERED: cefTRIAXone 1GM/50ML D5W 50 ML IV ONE (12:00)
[2020-03-21 13:44] VITALS: BP 126/77
== END 2020-03-21 13:45 | disposition other institution (70) ==
LOC: ER 09:06 → EDBD 09:06 → ER 13:45
DX: T83.9XXA Unspecified complication of genitourinary prosthetic device, implant and graft, initial encounter (principal); N39.0 Urinary tract infection, site not specified; I12.9 Hypertensive chronic kidney disease with stage 1 through stage 4 chronic kidney disease, or unspecified chronic kidney disease; N18.3 Chronic kidney disease, stage 3 (moderate); E86.0 Dehydration; J44.9 Chronic obstructive pulmonary disease, unspecified; K21.9 Gastro-esophageal reflux disease without esophagitis; Z87.891 Personal history of nicotine dependence; Z79.899 Other long term (current) drug therapy
CPT/HCPCS: 36415; 71045; 74176; 80053; 81001; 84154; 84484; 85025; 93005; 96365; 99285; J0696

== ENCOUNTER 2020-03-28 08:45 | Emergency (ER) | payer OTHER ==
[~2020-03-28] VITALS: Ht 182.9 cm; Wt 72.6 kg
[2020-03-28 10:15] VITALS: BP 165/63
== END 2020-03-28 10:15 | disposition home or self-care (01) ==
LOC: ER 08:45
DX: Z46.6 Encounter for fitting and adjustment of urinary device (principal)

== ENCOUNTER 2020-04-21 09:32 | Inpatient (IN) | payer MEDICARE, OTHER ==
[~2020-04-21] VITALS: Ht 182.9 cm; Wt 78.7 kg
[2020-04-21] MEDS ORDERED: ACETAMINOPHEN 325 MG TAB PO ONE (09:45)
[2020-04-21] MEDS ORDERED: cefTRIAXone 1GM/50ML D5W 50 ML IV ONE ×2 (09:51→10:00)
[2020-04-21] MEDS ORDERED: SODIUM CHLORIDE 0.9% 1,000 ML IV ONE (10:00)
[2020-04-21] MEDS ORDERED: DexAMETHasone SOD PHOS 10MG/1ML VIAL INJ IV ONE (10:00)
[2020-04-21 10:23] LABS: Basophils # (auto) 0 10 ^3/uL (0-0.2); Basophils % (auto) 0.1 % (0.0-2.0); Eosinophils # (auto) 0 10 ^3/uL (0-0.8); Hematocrit 41.8 % (41.0-53.0); Lymphocytes # (auto) 0.7 10 ^3/uL (0.4-5.4); Lymphocytes % (auto) 6.2 % (10.0-50.0); Mean Corpuscular Hemoglobin 31.5 pg (28.0-32.0); Mean Corpuscular Hgb Conc. 33.4 g/dL (32.0-36.0); Mean Corpuscular Volume 94.3 fL (80.0-100.0); Monocytes # (auto) 1.1 10 ^3/uL (0-1.3); Monocytes % (auto) 10.6 % (0.0-12.0); Neutrophils # (auto) 8.9 10 ^3/uL (1.6-8.6); Neutrophils % (auto) 83.1 % (37.0-80.0); Nucleated Red Blood Cells % 0.1 %; Platelet Count (auto) 167 10^3/uL (140-450); Red Blood Cells 4.44 10^6/uL (4.5-5.90); Red Cell Distribution Width 14.4 % (11.8-14.3); White Blood Cell 10.7 10^3/uL (4.4-10.8)
[2020-04-21 10:39] LABS: INR 1.05 (0.9-1.15); Partial Thromboplastin Time 25.6 sec (23.0-31.2)
[2020-04-21 10:41] LABS: Urine Bacteria FEW /hpf (None Seen); Urine Blood 1+ /uL (Negative); Urine Mucus FEW (None Seen); Urine Specific Gravity 1.012 (1.001-1.035); Urine WBC 304 /hpf (0 - 3)
[2020-04-21 10:46] LABS: Albumin 3.5 g/dL (3.4-5.0); Anion Gap 8 (5-15); Blood Urea Nitrogen 32 mg/dL (7-18); Calcium 8.7 mg/dL (8.5-10.1); Carbon Dioxide 22 mmol/L (21-32); Chloride 114 mmol/L (98-107); Glucose 125 mg/dL (74-106); Magnesium 2.7 mg/dL (1.6-2.6); Sodium 144 mmol/L (136-145)
[2020-04-21 10:49] LABS: Lactic Acid w/Reflex 2.5 mmol/L (0.4-2.0)
[2020-04-21 10:55] LABS: Alanine Aminotransferase 27 U/L (16-61); Alkaline Phosphatase 97 U/L (45-117); Aspartate Aminotransferase 21 U/L (15-37); BUN/Creatinine Ratio 14.6; Bilirubin, Total 2.2 mg/dL (0.2-1.0); GFR African American 38 mL/min; GFR Non-African American 31 mL/min; Lactate Dehydrogenase 202 U/L (87-241); Total Protein 7.9 g/dL (6.4-8.2)
[2020-04-21 10:56] LABS: CRP High Sensitivity > 19.0 mg/dL (< 0.3)
[2020-04-21] MEDS ORDERED: MORPHINE SULF INJ 2 MG/ML SYRINGE 1ML IV PRN (13:15)
[2020-04-21] MEDS ORDERED: LABETALOL HCL 5 MG/ML 4ML SYRINGE IV PRN (13:15)
[2020-04-21] MEDS ORDERED: NITROGLYCERIN 0.4 MG SL TAB SL PRN (13:15)
[2020-04-21] MEDS ORDERED: ENALAPRILAT 1.25 MG/ML-1ML VIAL IV PRN (13:45)
[2020-04-21] MEDS: D5W/SOD CHLO 0.9% 1,000 ML IV SCH ×2 (14:01→23:43)
[2020-04-21] MEDS: PIPERACILLIN-TAZOB 2.25GM 50 ML IV SCH ×2 (14:01→19:41)
[2020-04-21 18:00] VITALS: BP 109/78
--- NOTE | 2020-04-21 18:00 | NUR ---
Telemetry admit from ER LAZARA CARDENAS admitted to Telemetry unit after SBAR received. Patient oriented to AGUSTIN HUDDLESTON, RN primary RN, unit, room, bed, and unit policies regarding patient care and visiting hours. Patient now on continuous telemetry monitoring, tele box # 1. Patient placed on bedside oxygen, weighed by bedscale and encouraged to call if they need something. All questions and concerns addressed, patient verbalized understanding. Note: VS: 109/78, 100, 94%. 20, 98.0. No complaints of pain or discomfort at this time.
--- NOTE | 2020-04-21 18:28 | NUR ---
Received diet order from Hospitalist, Dr. Woods. Order placed as received.
--- NOTE | 2020-04-21 19:06 | NUR ---
Med Rec Daughter, Eunice Hunter, , will call back to update med rec
--- NOTE | 2020-04-21 19:30 | NUR ---
Opening Shift Note Assumed care of patient, from Nelly AGUILERA. Upon entering room patient noted sitting up in bed with even and unlabored respirations watching television. Patient is awake and alert x3, patient reoriented to time, will continue to reorient patient as needed and throughout shift. Patient denies pain or shortness of breath at this time. Patient is on 1L/min, NC, no sign/symptoms of distress noted or verbalized at this time. Instructed on plan of care and encouraged patient to call for assistance as needed, patient verbalized understanding. Bed is locked in lowest position, side rails x 2 are up, call light is within reach, and bed alarm is on.
--- NOTE | 2020-04-21 20:17 | NUR ---
Hospitalist Paged RE: Vomiting/Abdominal Pain Hospitalist paged regarding vomiting and patient complaining of 7/10 mid upper abdominal pain. Awaiting call back.
--- NOTE | 2020-04-21 20:50 | NUR ---
Emesis Patient vomited 200ml of green clear bile. Addendum: 04/22/20 at 0645 by NBA ZUNIGA RN RN Patient vomited twice with a total of 200ml of green clear bile with food particles.
[2020-04-21 21:00] VITALS: BP 109/75
--- NOTE | 2020-04-21 22:00 | NUR ---
Hospitalist Re-Paged RE: Nausea/Pain Medication Hospitalist re-paged regarding nausea/pain medication. Awaiting call back.
--- NOTE | 2020-04-21 22:52 | NUR ---
Hospitalist Returned Call RE: Nausea/Pain Medication Dr. Dixon made aware that patient is complaining of nausea and has vomited [address] Dixon also notified that patient is complaining of mid upper epigastric pain (pain scale 7/10). Orders received, read back, and verified. Will carry out orders as received (see eMAR).
--- NOTE | 2020-04-21 22:57 | NUR ---
Emesis Patient had an episode of emesis. Will medicate patient for nausea/vomiting as ordered by MD.
[2020-04-21] MEDS ORDERED: PANTOPRAZOLE 40 MG/10 ML VIAL INJ IV ONE (23:00)
[2020-04-21] MEDS ORDERED: METOCLOPRAMIDE HCL 5MG/ml INJ 2ml VIAL IV PRN (23:00)
[2020-04-21] MEDS: ONDANSETRON HCL 4 MG/2 ML VIAL IV PRN (23:00)
[2020-04-21 23:40] VITALS: BP 121/78
[2020-04-22] MEDS: PIPERACILLIN-TAZOB 2.25GM 50 ML IV SCH ×4 (02:13→20:26)
[2020-04-22 05:00] VITALS: BP 122/74
[2020-04-22] MEDS: ONDANSETRON HCL 4 MG/2 ML VIAL IV PRN (05:41)
[2020-04-22] MEDS: MORPHINE SULF INJ 2 MG/ML SYRINGE 1ML IV PRN (05:42)
[2020-04-22 08:00] VITALS: BP 127/78
[2020-04-22 08:24] LABS: Basophils # (auto) 0 10 ^3/uL (0-0.2); Eosinophils # (auto) 0 10 ^3/uL (0-0.8); Hematocrit 36.3 % (41.0-53.0); Hemoglobin 11.9 g/dL (13.5-17.5); Lymphocytes # (auto) 0.5 10 ^3/uL (0.4-5.4); Lymphocytes % (auto) 6.4 % (10.0-50.0); Mean Corpuscular Hemoglobin 31.4 pg (28.0-32.0); Mean Corpuscular Hgb Conc. 32.8 g/dL (32.0-36.0); Mean Corpuscular Volume 95.6 fL (80.0-100.0); Monocytes # (auto) 0.8 10 ^3/uL (0-1.3); Monocytes % (auto) 9.6 % (0.0-12.0); Neutrophils # (auto) 6.7 10 ^3/uL (1.6-8.6); Nucleated Red Blood Cells % 0.1 %; Platelet Count (auto) 153 10^3/uL (140-450); Red Blood Cells 3.79 10^6/uL (4.5-5.90); Red Cell Distribution Width 14.4 % (11.8-14.3)
[2020-04-22 08:50] LABS: Anion Gap 4 (5-15); Blood Urea Nitrogen 37 mg/dL (7-18); Calcium 8.4 mg/dL (8.5-10.1); Carbon Dioxide 24 mmol/L (21-32); Chloride 114 mmol/L (98-107); Glucose 125 mg/dL (74-106); Magnesium 2.9 mg/dL (1.6-2.6); Potassium 3.8 mmol/L (3.5-5.1); Sodium 142 mmol/L (136-145)
[2020-04-22 09:00] LABS: Alanine Aminotransferase 23 U/L (16-61); Alkaline Phosphatase 74 U/L (45-117); Aspartate Aminotransferase 22 U/L (15-37); Bilirubin, Total 1.2 mg/dL (0.2-1.0); GFR African American 43 mL/min; GFR Non-African American 36 mL/min; Total Protein 6.9 g/dL (6.4-8.2)
[2020-04-22 09:09] LABS: CRP High Sensitivity > 19.0 mg/dL (< 0.3)
[2020-04-22] MEDS: PANTOPRAZOLE 40 MG/10 ML VIAL INJ IV SCH ×2 (09:33→21:46)
[2020-04-22] MEDS: ENOXAPARIN SOD 40 MG/0.4 ML SYRINGE SC SCH (09:33)
[2020-04-22] MEDS ORDERED: PANTOPRAZOLE 40 MG/10 ML VIAL INJ IV SCH (10:00)
[2020-04-22] MEDS ORDERED: BUDESONIDE (INHALATION) 0.5 MG/2 ML NEB NEB ONE (11:15)
[2020-04-22 11:47] VITALS: BP 108/73
[2020-04-22] MEDS: D5W/SOD CHLO 0.9% 1,000 ML IV SCH ×2 (12:15→19:15)
[2020-04-22] MEDS: ACETAMINOPHEN 325 MG TAB PO PRN (15:48)
[2020-04-22 17:00] VITALS: BP 105/63
--- NOTE | 2020-04-22 20:06 | NUR ---
Opening Shift Note Assumed care of patient, awake and alert. No S/S of distress/SOB or pain. Instructed on POC and questions answered. Bed is locked in lowest position with side rails up x2 for safety. Call light is within reach and patient encouraged to call for assistance PRN, will continue to monitor for changes Q1hr and PRN.
[2020-04-22] MEDS: BUDESONIDE (INHALATION) 0.5 MG/2 ML NEB NEB SCH (21:51)
[2020-04-22 22:00] VITALS: BP 106/68
[2020-04-22 22:46] VITALS: BP 106/68
[2020-04-23] MEDS: PIPERACILLIN-TAZOB 2.25GM 50 ML IV SCH ×4 (01:46→20:10)
[2020-04-23] MEDS: ACETAMINOPHEN 325 MG TAB PO PRN (03:07)
[2020-04-23] MEDS: D5W/SOD CHLO 0.9% 1,000 ML IV SCH ×2 (04:50→15:31)
[2020-04-23 05:00] VITALS: BP 104/75
[2020-04-23 05:49] LABS: Calcium 8.1 mg/dL (8.5-10.1); Magnesium 2.7 mg/dL (1.6-2.6); Potassium 4.1 mmol/L (3.5-5.1)
[2020-04-23 05:51] LABS: BUN/Creatinine Ratio 16.5
[2020-04-23] MEDS: BUDESONIDE (INHALATION) 0.5 MG/2 ML NEB NEB SCH ×2 (06:22→22:46)
[2020-04-23] MEDS: MORPHINE SULF INJ 2 MG/ML SYRINGE 1ML IV PRN ×2 (06:56→17:55)
--- NOTE | 2020-04-23 07:05 | NUR ---
IV insertion IV access obtained, via clean sterile technique by inserting 22 gauge catheter at right forearm after 2 attempt(s). IV secured properly. No trauma to site. Patient tolerated well.
[2020-04-23 08:00] VITALS: BP 123/84
[2020-04-23] MEDS: PANTOPRAZOLE 40 MG/10 ML VIAL INJ IV SCH ×2 (09:00→21:56)
[2020-04-23] MEDS: ENOXAPARIN SOD 40 MG/0.4 ML SYRINGE SC SCH (09:01)
--- NOTE | 2020-04-23 10:03 | NUR ---
Hospitalist MD Albert at bedside, aware of patient status. New orders for [place] received, Will carry out new orders and cont to monitor patient.
[2020-04-23] MEDS: HYDROcodone-ACET 5/325MG TAB PO PRN ×2 (10:14→15:55)
--- NOTE | 2020-04-23 10:43 | NUR ---
Patient Transferred to room 222B with RN Kaitlin. Report given. Patient states, he is feeling sob as we re transferring to wheelchair. Attempted to place NC however, patient states, " I can just get it when i get to the other room." Patient showing no signs of distress. Moderated assistance needed for transfer to wheelchair.
--- NOTE | 2020-04-23 10:43 | NUR ---
PATIENT ARRIVED TO UNIT RECEIVED REPORT. PATIENT ARRIVED TO UNIT, ALERT AND ORIENTED X4 O2 94% PUT ON 2L NASAL CANULA, BP 117/84 HEART RATE 116BPMP, TEMP 98.7. PATIENT DENIES SOB, AND ANY PAIN AT THIS TIME. ORIENTED PATIENT TO UNIT, STAFF,AND POC. PATIENT VERBALIZED UNDERSTANDING. TELEBOX REMOVED CLEANED AND SENT TO ICU FOR NEW TELEBOX. LABORER SALVAGE NOTIFIED. BED IN LOWEST LOCKED POSITION CALL LIGHT WITHIN REACH WILL CONTINUE TO MONITOR.
[2020-04-23 13:00] VITALS: BP 119/77
--- NOTE | 2020-04-23 15:55 | NUR ---
PAIN MANAGEMENT PATIENT C/O HEADACHE 05/13, BUT VERBALIZED WANTING NORCO WHICH IS WHAT HE RECEIVED EARLIER AND STATED "IT WORKED GOOD LAST TIME". MEDICATION GIVEN WILL CONTINUE TO MONITOR
[2020-04-23 17:00] VITALS: BP 115/82
--- NOTE | 2020-04-23 19:54 | NUR ---
open note assumed care of pt. upon entering room pt on room air, breathing even and unlabored with eyes closed. no s/s distress observed. pt bed locked, low and 2x rails up. call light in reach, this nurse to return at later time to update patient on plan of care. this nurse also to round q1hr and prn.
[2020-04-23 21:00] VITALS: BP 110/74
[2020-04-24] MEDS: D5W/SOD CHLO 0.9% 1,000 ML IV SCH ×3 (01:11→22:23)
[2020-04-24] MEDS: MORPHINE SULF INJ 2 MG/ML SYRINGE 1ML IV PRN (01:11)
[2020-04-24] MEDS: PIPERACILLIN-TAZOB 2.25GM 50 ML IV SCH ×4 (03:02→19:26)
[2020-04-24] MEDS: HYDROcodone-ACET 5/325MG TAB PO PRN ×2 (04:03→14:15)
[2020-04-24 05:00] VITALS: BP 133/86
[2020-04-24 06:09] LABS: Potassium 3.7 mmol/L (3.5-5.1)
[2020-04-24] MEDS: BUDESONIDE (INHALATION) 0.5 MG/2 ML NEB NEB SCH ×2 (06:11→21:58)
[2020-04-24] MEDS: ALBUTEROL SULF 2.5 MG/0.5ML(0.5%) NEB SOLN NEB PRN ×2 (06:11→21:58)
[2020-04-24 06:12] LABS: Calcium 8.2 mg/dL (8.5-10.1)
--- NOTE | 2020-04-24 07:30 | NUR ---
Opening Shift Note Assumed care of patient,asleep arousable to verbal stimuli. No S/S of distress/SOB or pain. Instructed on POC and to call for assist PRN. Bed in lowest locked position, call light within reach, side rails up x2, fall precautions in place. Will continue to monitor for changes Q1hr and PRN.
--- NOTE | 2020-04-24 08:00 | NUR ---
PATIENT CALLED NOTED TOWEL AROUND ESQUIVEL CATHETER IS VERY WET AND SATURATED WITH URINE,PATIENT STATED "ITS BEEN LEAKING SINCE LAST NIGHT"
[2020-04-24 09:00] VITALS: BP 146/88
[2020-04-24] MEDS: ENOXAPARIN SOD 40 MG/0.4 ML SYRINGE SC SCH (09:32)
[2020-04-24] MEDS: PANTOPRAZOLE 40 MG/10 ML VIAL INJ IV SCH ×2 (09:32→22:23)
--- NOTE | 2020-04-24 09:50 | NUR ---
MD visit Dr. Albert here to see and examined patient informed patient collier catheter is leaking received order to consult urology
--- NOTE | 2020-04-24 10:15 | NUR ---
SPO0KE TO DHARMESH Sanchez UROLOGY PA RE CONSULT
--- NOTE | 2020-04-24 11:15 | NUR ---
DHARMESH DIAZ UROLOGY PA HERE TO SEE AND EXAMINED PATIENT RECEIVED ORDER TO CHANGE ESQUIVEL CATHETER AND TO PUT Fr#18
--- NOTE | 2020-04-24 12:15 | NUR ---
OLD ESQUIVEL CATHETER DISCONTINUED,ESQUIVEL CATHETER Fr #18 INSERTED USING AND OBSERVING ASEPTIC TECHNIQUE
--- NOTE | 2020-04-24 12:27 | NUR ---
Nutrition Assessment Est energy needs 3466-7132 kcal (20-25 kcal/kg BW 80.1kg) Est protein needs 48-64g (0.6-0.8g/kg BW 80.1kg r/t elevated RFTs, possible CKD per MD) Will reassess prn. Addendum: 04/24/20 at [address] Amended: Links added.
[2020-04-24 13:00] VITALS: BP 144/93
--- NOTE | 2020-04-24 14:00 | NUR ---
OADALBERTO AMBULATED FROM BED TO BED A ASSISTED BY PHYSICAL THERAPY
--- NOTE | 2020-04-24 14:15 | NUR ---
C/O HEAD ACHE AND BACK PAIN,MEDICATED WITH NORCO 5/325 MG SEE EMAR FOR DETAIL
--- NOTE | 2020-04-24 16:05 | NUR ---
Assessment Per consult for SNF placement. Patient is a 75-year-old male who is alert an oriented. Prior to admission patient lived home with family and functioned independently. Per patient he can care for his own ADLs. Per patient he will return home to his prior living arrangements post discharge and family will transport him home. Patient refused SNF placement. Patient feels safe returning home. Per patient he is on service with [facility] and would like to resume service upon discharge day. Informed patient I will informed bedside nurse. Informed patient she has the right to participate in all discharge planning. Patient verbalized understanding and agreed to discharge plan. Informed WILLY Thrasher regarding patient refusing SNF. Informed WILLY Thrasher patient is on service with [facility] and will need a resumption order. Addendum: 04/24/20 at 1609 by STEPHANIE VILCHIS Amended: Links added.
[2020-04-24 17:00] VITALS: BP_SYST 135; BP_SYST 144; BP_DIAS 89; BP_DIAS 93
[2020-04-24] MEDS ORDERED: CYANOCOBALAMIN (B-12) 1000 MCG/1 ML VIAL SUBCUT ONE (19:00)
--- NOTE | 2020-04-24 19:09 | NUR ---
STATUS UNCHANGED,NO DISTRESS,NO DISCOMFORT,REPORT GIVEN TO INCOMING NOC SHIFT RN
--- NOTE | 2020-04-24 19:32 | NUR ---
open note assumed care of pt. upon entering room pt eyes closed, breathing even and unlabored on room air. no s/s distress observed. pt has collier in place below the waist, secured and draining. pt bed locked, low and 2x rails up. call light in reach. this nurse to round q1hr and prn. will return and update pt on plan of care at later time.
[2020-04-24 22:00] VITALS: BP 126/78
[2020-04-25] MEDS: PIPERACILLIN-TAZOB 2.25GM 50 ML IV SCH ×4 (01:32→20:00)
[2020-04-25] MEDS: HYDROcodone-ACET 5/325MG TAB PO PRN ×3 (01:33→23:06)
[2020-04-25 05:00] VITALS: BP 134/86
[2020-04-25] MEDS: ALBUTEROL SULF 2.5 MG/0.5ML(0.5%) NEB SOLN NEB PRN (06:36)
[2020-04-25] MEDS: BUDESONIDE (INHALATION) 0.5 MG/2 ML NEB NEB SCH ×2 (06:38→18:55)
--- NOTE | 2020-04-25 07:30 | NUR ---
Opening Shift Note Assumed care of patient,awake, No S/S of distress/SOB or pain. Instructed on POC and to call for assist PRN. Bed in lowest locked position, call light within reach, side rails up x2, fall precautions in place. Will continue to monitor for changes Q1hr and PRN.
[2020-04-25] MEDS: D5W/SOD CHLO 0.9% 1,000 ML IV SCH (08:47)
[2020-04-25 09:00] VITALS: BP 130/86
--- NOTE | 2020-04-25 09:00 | NUR ---
C/O HEAD ACHE,MEDICATED WITH NORCO 5/325 PO REQUESTED,SEE eMAR
--- NOTE | 2020-04-25 09:30 | NUR ---
IV removal IV DC'd with clean sterile technique, catheter fully intact. Pressure dressing applied to site. Patient tolerated well. IV insertion IV access obtained, via clean sterile technique by inserting 20 gauge catheter at Right FA after 1 attempt(s). IV secured properly. No trauma to site. Patient tolerated well.
--- NOTE | 2020-04-25 09:30 | NUR ---
MD VISIT DR. PANTOJA HERE TO SEE AND EXAMINED PATIENT INFORMED OF PATIENT COMPLAINT, FREQUENT HEADACHE,NO ORDERS RECEIVED
[2020-04-25] MEDS ORDERED: CYANOCOBALAMIN (B-12) 1000 MCG/1 ML VIAL IM SCH (10:00)
[2020-04-25] MEDS: CYANOCOBALAMIN 500 MCG TAB PO SCH (10:56)
[2020-04-25] MEDS: MORPHINE SULF INJ 2 MG/ML SYRINGE 1ML IV PRN (10:57)
[2020-04-25] MEDS: PANTOPRAZOLE 40 MG/10 ML VIAL INJ IV SCH ×2 (10:57→22:12)
[2020-04-25] MEDS: ENOXAPARIN SOD 40 MG/0.4 ML SYRINGE SC SCH (10:57)
--- NOTE | 2020-04-25 10:57 | NUR ---
STILL C/O HEAD ACHE AND BACK PAIN REQUESTING PAIN MEDICATIONSTRONGER THAN NORCO,MORPHINE SULFATE 1 MG IVP GIVEN SEE eMAR FOR DETAIL
--- NOTE | 2020-04-25 12:09 | NUR ---
D/C Planning Per consult to resume home health. faxed clinical information to [facility]. Per Kati with agency they will resume care for patient within 24-48hrs upon d/c day.
[2020-04-25 13:06] VITALS: BP 120/75
[2020-04-25] MEDS: ACETAMINOPHEN 325 MG TAB PO PRN (16:26)
[2020-04-25 16:49] VITALS: BP 152/82
--- NOTE | 2020-04-25 19:08 | NUR ---
STATUS UNCHANGED,NO DISTRESS,NO DISCOMFORT,REPORT GIVEN TO INCOMING NOC SHIFT RN
--- NOTE | 2020-04-25 20:01 | NUR ---
open note assumed care of pt, upon entering room pt awake alert and on room air with no s/s distress noted or expressed. pt denies any pain. pt updated on plan of care. pt bed locked, low and 2x rails up. pt has collier in place, secured, below the waist and draining. pt call light in reach, this nurse to round q1hr and prn. pt encouraged to call as needed.
[2020-04-25 22:00] VITALS: BP 128/78
[2020-04-25 23:57] VITALS: BP 128/78
[2020-04-26] MEDS: PIPERACILLIN-TAZOB 2.25GM 50 ML IV SCH ×2 (02:11→08:13)
[2020-04-26 05:00] VITALS: BP 129/80
[2020-04-26 06:05] LABS: Basophils # (auto) 0 10 ^3/uL (0-0.2); Basophils % (auto) 0.3 % (0.0-2.0); Eosinophils # (auto) 0 10 ^3/uL (0-0.8); Eosinophils % (auto) 1.3 % (0.0-7.0); Hemoglobin 11.2 g/dL (13.5-17.5); Lymphocytes # (auto) 0.9 10 ^3/uL (0.4-5.4); Lymphocytes % (auto) 23.5 % (10.0-50.0); Mean Corpuscular Hemoglobin 31.8 pg (28.0-32.0); Mean Corpuscular Hgb Conc. 34.9 g/dL (32.0-36.0); Mean Corpuscular Volume 91.1 fL (80.0-100.0); Monocytes # (auto) 0.4 10 ^3/uL (0-1.3); Monocytes % (auto) 11.1 % (0.0-12.0); Neutrophils # (auto) 2.4 10 ^3/uL (1.6-8.6); Neutrophils % (auto) 63.8 % (37.0-80.0); Platelet Count (auto) 176 10^3/uL (140-450); Red Blood Cells 3.52 10^6/uL (4.5-5.90); Red Cell Distribution Width 13.5 % (11.8-14.3); White Blood Cell 3.7 10^3/uL (4.4-10.8)
[2020-04-26 06:26] LABS: Albumin 2.6 g/dL (3.4-5.0); Calcium 8.4 mg/dL (8.5-10.1); Potassium 3.8 mmol/L (3.5-5.1)
[2020-04-26 06:31] LABS: BUN/Creatinine Ratio 9.8; Bilirubin, Total 0.6 mg/dL (0.2-1.0); Total Protein 6.3 g/dL (6.4-8.2)
[2020-04-26] MEDS: ALBUTEROL SULF 2.5 MG/0.5ML(0.5%) NEB SOLN NEB PRN (06:33)
[2020-04-26] MEDS: BUDESONIDE (INHALATION) 0.5 MG/2 ML NEB NEB SCH (06:33)
--- NOTE | 2020-04-26 08:00 | NUR ---
OPENING SHIFT NOTE ASSUMED CARE OF PATIENT AWAKE AND ALERT. NO S/S OF DISTRESS NOTED OR COMPLAINTS OF PAIN. PATIENT UPDATED ON POC FOR THE DAY AND ALL QUESTIONS ANSWERED. BED IS IN LOWEST, LOCKED POSITION WITH SIDE RAILS UP X2 AND CALL LIGHT WITHIN REACH. WILL CONTINUE TO MONITOR Q1H AND PRN.
[2020-04-26 09:00] VITALS: BP 118/76
[2020-04-26] MEDS: PANTOPRAZOLE 40 MG/10 ML VIAL INJ IV SCH (09:37)
[2020-04-26] MEDS: ENOXAPARIN SOD 40 MG/0.4 ML SYRINGE SC SCH (09:37)
[2020-04-26] MEDS: CYANOCOBALAMIN 500 MCG TAB PO SCH (09:37)
[2020-04-26] MEDS: HYDROcodone-ACET 5/325MG TAB PO PRN (09:59)
[2020-04-26] MEDS ORDERED: LEVO500T21 PO (11:58)
--- NOTE | 2020-04-26 13:31 | NUR ---
Discharge instructions given as ordered. Encourage to follow up with PMD as instructed. All questions and concerns addressed. Patient verbalized understanding. IV removed with catheter intact, pressure dressing applied, collier catheter removed. Telemetry unit returned to ICU. Patient taken to vehicle via wheelchair with all personal belongings, accompanied by staff. No distress noted at time of departure.
[2020-04-26] MEDS ORDERED: PIPERACILLIN-TAZOB 3.375GM 100 ML IV SCH (14:00)
== END 2020-04-26 13:30 | disposition home health service (06) | DRG 871 ==
LOC: ER 09:32 → EDBD 09:32 → TELE 09:33 → TELE-EAST 18:02 → TELE-CENTR 04-23 10:47
PROVIDERS: ATTEND Internal Medicine
DX: A41.9 Sepsis, unspecified organism (principal); J96.01 Acute respiratory failure with hypoxia; G93.41 Metabolic encephalopathy; N39.0 Urinary tract infection, site not specified; E87.2 Acidosis; I13.0 Hypertensive heart and chronic kidney disease with heart failure and stage 1 through stage 4 chronic kidney disease, or unspecified chronic kidney disease; J43.9 Emphysema, unspecified; N18.3 Chronic kidney disease, stage 3 (moderate); I50.9 Heart failure, unspecified; C80.1 Malignant (primary) neoplasm, unspecified; E86.0 Dehydration; I70.8 Atherosclerosis of other arteries; K21.9 Gastro-esophageal reflux disease without esophagitis; Z20.828 Contact with and (suspected) exposure to other viral communicable diseases; Z79.899 Other long term (current) drug therapy; Z82.0 Family history of epilepsy and other diseases of the nervous system; Z85.46 Personal history of malignant neoplasm of prostate; Z87.440 Personal history of urinary (tract) infections; Z87.442 Personal history of urinary calculi; Z87.891 Personal history of nicotine dependence; Z90.79 Acquired absence of other genital organ(s)
CPT/HCPCS: 36415; 36600; 70450; 71045; 80048; 80053; 81001; 82607; 82728; 82805; 83036; 83605; 83615; 83735; 83880; 84484; 85025; 85610; 85730; 86141; 87040; 87086; 87088; 87186; 87426; 93005; 93970; 94640; 97116; C9113; G0378; J0696; J1100; J2405; J2543; J7042

== ENCOUNTER 2022-07-02 18:59 | Emergency (ER) | payer OTHER ==
[~2022-07-02] VITALS: Ht 177.8 cm; Wt 80.0 kg
[~2022-07-02 18:59] MED LIST changes: -CHOL20009 PO; +LEVO500T31 PO
[2022-07-02] MEDS ORDERED: ACETAMINOPHEN 325 MG TAB PO ONE (19:45)
[2022-07-02 20:00] LABS: Basophils # (auto) 0 10 ^3/uL (0-0.2); Basophils % (auto) 0.1 % (0.0-2.0); Eosinophils # (auto) 0 10 ^3/uL (0-0.8); Hematocrit 41.7 % (41.0-53.0); Hemoglobin 13.8 g/dL (13.5-17.5); Lymphocytes # (auto) 0.6 10 ^3/uL (0.4-5.4); Lymphocytes % (auto) 12.1 % (10.0-50.0); Mean Corpuscular Hemoglobin 31.7 pg (28.0-32.0); Mean Corpuscular Hgb Conc. 33.1 g/dL (32.0-36.0); Mean Corpuscular Volume 95.6 fL (80.0-100.0); Monocytes # (auto) 0.3 10 ^3/uL (0-1.3); Monocytes % (auto) 6.6 % (0.0-12.0); Neutrophils # (auto) 4.1 10 ^3/uL (1.6-8.6); Neutrophils % (auto) 81.2 % (37.0-80.0); Nucleated Red Blood Cells % 0.1 %; Red Blood Cells 4.37 10^6/uL (4.5-5.90); Red Cell Distribution Width 13.4 % (11.8-14.3); White Blood Cell 5.1 10^3/uL (4.4-10.8)
[2022-07-02 20:21] LABS: Albumin 3.3 g/dL (3.4-5.0); Calcium 8.1 mg/dL (8.5-10.1); Potassium 3.9 mmol/L (3.5-5.1)
[2022-07-02 20:23] LABS: BUN/Creatinine Ratio 17.7
[2022-07-02 20:37] LABS: Total Protein 6.3 g/dL (6.4-8.2)
[2022-07-02 22:24] LABS: Urine Blood TRACE /uL (Negative); Urine Specific Gravity 1.018 (1.001-1.035)
[2022-07-03 03:00] VITALS: BP 160/92
[2022-07-03] MEDS ORDERED: PRED20TA2 PO ×2 (03:07→03:56)
[2022-07-03] MEDS ORDERED: AZIT250T9 PO ×2 (03:07→03:56)
[2022-07-03] MEDS ORDERED: ALBUAER3 IN ×2 (03:07→03:56)
[2022-07-03] MEDS ORDERED: predniSONE 20 MG TAB PO ONE (03:15)
[2022-07-03] MEDS ORDERED: AZITHROMYCIN 250 MG TAB PO ONE (03:15)
[2022-07-03] MEDS ORDERED: IBUPROFEN 600 MG TAB PO ONE (03:15)
== END 2022-07-03 04:23 | disposition home or self-care (01) ==
LOC: EDBD 18:59 → ER 19:02
DX: J20.9 Acute bronchitis, unspecified (principal); R05.9 Cough, unspecified; I11.0 Hypertensive heart disease with heart failure; I50.9 Heart failure, unspecified; J44.9 Chronic obstructive pulmonary disease, unspecified; K21.9 Gastro-esophageal reflux disease without esophagitis; Z20.822 Contact with and (suspected) exposure to COVID-19; Z79.899 Other long term (current) drug therapy; Z87.442 Personal history of urinary calculi; Z87.891 Personal history of nicotine dependence
CPT/HCPCS: 36415; 71045; 80053; 81003; 83735; 84484; 85025; 87426; 87804; 93005; 99285; J7512

== ENCOUNTER 2023-01-10 15:07 | Inpatient (IN) | payer MEDICARE, OTHER ==
[~2023-01-10] VITALS: Ht 182.9 cm; Wt 66.7 kg
[~2023-01-10 15:07] MED LIST changes: +ALBUAER3 IN; +AZIT-43 PO; -ENAL10TA12 PO; +ENAL1TAB46 PO; +PRED20TA2 PO
[2023-01-10] MEDS ORDERED: SODIUM CHLORIDE 0.9% 1,000 ML IV ONE (17:15)
[2023-01-10 17:28] LABS: Basophils # (auto) 0 10 ^3/uL (0-0.2); Basophils % (auto) 0.1 % (0.0-2.0); Eosinophils # (auto) 0 10 ^3/uL (0-0.8); Hematocrit 43.1 % (41.0-53.0); Hemoglobin 14.4 g/dL (13.5-17.5); Lymphocytes # (auto) 1.3 10 ^3/uL (0.4-5.4); Lymphocytes % (auto) 7.5 % (10.0-50.0); Mean Corpuscular Hemoglobin 32.6 pg (28.0-32.0); Mean Corpuscular Hgb Conc. 33.5 g/dL (32.0-36.0); Mean Corpuscular Volume 97.4 fL (80.0-100.0); Monocytes # (auto) 0.7 10 ^3/uL (0-1.3); Monocytes % (auto) 3.8 % (0.0-12.0); Neutrophils # (auto) 15.8 10 ^3/uL (1.6-8.6); Neutrophils % (auto) 88.6 % (37.0-80.0); Red Blood Cells 4.43 10^6/uL (4.5-5.90); Red Cell Distribution Width 14.3 % (11.8-14.3); White Blood Cell 17.8 10^3/uL (4.4-10.8)
[2023-01-10 17:46] LABS: Albumin 3.4 g/dL (3.4-5.0); Calcium 8.4 mg/dL (8.5-10.1); Magnesium 2.4 mg/dL (1.6-2.6); Potassium 3.5 mmol/L (3.5-5.1)
[2023-01-10 17:50] LABS: BUN/Creatinine Ratio 13.3 (10.0-20.0); Bilirubin, Total 2.1 mg/dL (0.2-1.0)
[2023-01-10 18:18] LABS: INR 1.04 (0.9-1.15); Partial Thromboplastin Time 29.9 sec (24.6-33.4)
[2023-01-10] MEDS ORDERED: ENOXAPARIN SOD 40 MG/0.4 ML SYRINGE SC ONE (20:30)
[2023-01-10] MEDS ORDERED: AZITHROMYCIN 500MG/ 250ML 250 ML IV ONE (20:30)
[2023-01-10] MEDS ORDERED: DexAMETHasone INJECTION 10 MG in D5W 5% 50 ML IV ONE (20:45)
[2023-01-10] MEDS ORDERED: ACETAMINOPHEN 500 MG TAB PO ONE (21:00)
[2023-01-10] MEDS ORDERED: HYDROcodone-ACET 5/325MG TAB PO ONE (21:30)
[2023-01-10] MEDS ORDERED: DOCUSATE SOD 100 MG CAP PO PRN (22:15)
[2023-01-10] MEDS ORDERED: IPRATROPIUM BROM 0.5 MG/2.5ML INH SOL NEB PRN (22:15)
[2023-01-10] MEDS ORDERED: HYDROcodone-ACET 5/325MG TAB PO PRN (22:15)
[2023-01-10] MEDS ORDERED: ALBUTEROL SULF 2.5 MG/0.5ML(0.5%) NEB SOLN NEB PRN (22:15)
[2023-01-10] MEDS ORDERED: ONDANSETRON HCL 4 MG/2 ML VIAL IV PRN (22:15)
[2023-01-10] MEDS ORDERED: MORPHINE SULFATE INJ 2 MG/ml SYRG IV PRN (22:45)
[2023-01-10] MEDS ORDERED: NITROGLYCERIN 0.4 MG SL TAB SL PRN (22:45)
[2023-01-10 23:06] VITALS: BP 136/84
[2023-01-11] MEDS ORDERED: cefTRIAXone 1GM/50ML D5W 50 ML IV ONE
[2023-01-11 01:26] LABS: Urine Bacteria FEW /hpf (None Seen); Urine Blood Negative /uL (Negative); Urine Hyaline Cast MOD /lpf (0 - 2); Urine Mucus FEW (None Seen); Urine Specific Gravity 1.023 (1.001-1.035); Urine WBC 8 /hpf (0 - 3)
[2023-01-11] MEDS: SODIUM CHLOR 0.9% PF (SALINE LOCK) 10ML VIAL/SYR IV SCH ×3 (06:05→21:13)
[2023-01-11 06:30] LABS: Basophils # (auto) 0 10 ^3/uL (0-0.2); Basophils % (auto) 0.1 % (0.0-2.0); Eosinophils # (auto) 0 10 ^3/uL (0-0.8); Hematocrit 37.7 % (41.0-53.0); Hemoglobin 12.8 g/dL (13.5-17.5); Lymphocytes # (auto) 0.8 10 ^3/uL (0.4-5.4); Mean Corpuscular Hemoglobin 32.9 pg (28.0-32.0); Mean Corpuscular Hgb Conc. 33.9 g/dL (32.0-36.0); Mean Corpuscular Volume 97.1 fL (80.0-100.0); Monocytes # (auto) 0.6 10 ^3/uL (0-1.3); Monocytes % (auto) 4.5 % (0.0-12.0); Neutrophils # (auto) 12.3 10 ^3/uL (1.6-8.6); Neutrophils % (auto) 89.4 % (37.0-80.0); Nucleated Red Blood Cells % 0.1 %; Red Blood Cells 3.88 10^6/uL (4.5-5.90); Red Cell Distribution Width 14.1 % (11.8-14.3); White Blood Cell 13.7 10^3/uL (4.4-10.8)
[2023-01-11 06:45] LABS: Potassium 3.5 mmol/L (3.5-5.1)
[2023-01-11 06:52] LABS: Albumin 2.6 g/dL (3.4-5.0); Bilirubin, Total 1.5 mg/dL (0.2-1.0); Calcium 8.4 mg/dL (8.5-10.1); Total Protein 6.4 g/dL (6.4-8.2)
[2023-01-11] MEDS ORDERED: IOHEXOL 350 MG/ML 100ML IJ ONE (08:19)
[2023-01-11] MEDS: AZITHROMYCIN 500MG/ 250ML 250 ML IV SCH (09:51)
[2023-01-11] MEDS: FAMOTIDINE (10MG/ML) 2ML VL IV SCH (09:51)
[2023-01-11] MEDS: DexAMETHasone SOD PHOS 10MG/1ML VIAL INJ IV SCH (09:51)
[2023-01-11 13:00] VITALS: BP 144/88
[2023-01-11 17:00] VITALS: BP 136/80
[2023-01-11] MEDS: ACETAMINOPHEN 325 MG TAB PO PRN (18:33)
[2023-01-11] MEDS: cefTRIAXone 1GM/50ML D5W 50 ML IV SCH (21:13)
[2023-01-11 22:00] VITALS: BP 125/71
[2023-01-12 03:08] LABS: Urine Bacteria NONE SEEN /hpf (None Seen); Urine Blood 1+ /uL (Negative); Urine Mucus FEW (None Seen); Urine WBC 33 /hpf (0 - 3)
[2023-01-12 05:00] VITALS: BP 141/77
[2023-01-12] MEDS: SODIUM CHLOR 0.9% PF (SALINE LOCK) 10ML VIAL/SYR IV SCH ×3 (06:19→21:15)
[2023-01-12] MEDS: ACETAMINOPHEN 325 MG TAB PO PRN ×2 (06:30→16:52)
[2023-01-12 09:00] VITALS: BP 104/69
[2023-01-12] MEDS: FAMOTIDINE (10MG/ML) 2ML VL IV SCH (09:09)
[2023-01-12] MEDS: DexAMETHasone SOD PHOS 10MG/1ML VIAL INJ IV SCH (09:09)
[2023-01-12] MEDS: AZITHROMYCIN 500MG/ 250ML 250 ML IV SCH (09:09)
[2023-01-12 12:00] VITALS: BP 121/62
[2023-01-12 16:00] VITALS: BP 129/79
[2023-01-12] MEDS: guaiFENesin-DM 100/10mg/5ml SYR PO PRN (16:51)
[2023-01-12] MEDS: cefTRIAXone 1GM/50ML D5W 50 ML IV SCH (21:14)
[2023-01-12 22:00] VITALS: BP 130/82
[2023-01-13 05:00] VITALS: BP 131/86
[2023-01-13] MEDS: ACETAMINOPHEN 325 MG TAB PO PRN ×2 (05:31→11:38)
[2023-01-13] MEDS: guaiFENesin-DM 100/10mg/5ml SYR PO PRN ×2 (05:31→22:51)
[2023-01-13] MEDS: SODIUM CHLOR 0.9% PF (SALINE LOCK) 10ML VIAL/SYR IV SCH ×3 (05:38→22:14)
[2023-01-13 06:11] LABS: Basophils # (auto) 0 10 ^3/uL (0-0.2); Basophils % (auto) 0.1 % (0.0-2.0); Eosinophils # (auto) 0 10 ^3/uL (0-0.8); Hematocrit 35.9 % (41.0-53.0); Hemoglobin 12.2 g/dL (13.5-17.5); Lymphocytes # (auto) 0.9 10 ^3/uL (0.4-5.4); Lymphocytes % (auto) 7.1 % (10.0-50.0); Mean Corpuscular Hemoglobin 33.1 pg (28.0-32.0); Mean Corpuscular Hgb Conc. 33.9 g/dL (32.0-36.0); Mean Corpuscular Volume 97.5 fL (80.0-100.0); Monocytes # (auto) 0.8 10 ^3/uL (0-1.3); Monocytes % (auto) 6.6 % (0.0-12.0); Neutrophils # (auto) 10.3 10 ^3/uL (1.6-8.6); Neutrophils % (auto) 86.2 % (37.0-80.0); Red Blood Cells 3.68 10^6/uL (4.5-5.90); Red Cell Distribution Width 13.8 % (11.8-14.3)
[2023-01-13 06:35] LABS: Anion Gap 6 (5-15); BUN/Creatinine Ratio 30.8 (10.0-20.0); Blood Urea Nitrogen 33 mg/dL (7-18); Calcium 8.3 mg/dL (8.5-10.1); Carbon Dioxide 25 mmol/L (21-32); Chloride 108 mmol/L (98-107); GFR African American 86 mL/min; GFR Non-African American 71 mL/min; Glucose 106 mg/dL (74-106); Potassium 4.1 mmol/L (3.5-5.1); Sodium 139 mmol/L (136-145)
[2023-01-13 09:00] VITALS: BP 132/88
[2023-01-13] MEDS: DexAMETHasone SOD PHOS 10MG/1ML VIAL INJ IV SCH (09:55)
[2023-01-13] MEDS: AZITHROMYCIN 500MG/ 250ML 250 ML IV SCH (09:55)
[2023-01-13] MEDS: FAMOTIDINE (10MG/ML) 2ML VL IV SCH (09:55)
[2023-01-13 13:00] VITALS: BP 147/94
[2023-01-13 17:00] VITALS: BP 149/87
[2023-01-13] MEDS: cefTRIAXone 1GM/50ML D5W 50 ML IV SCH (22:14)
[2023-01-14] VITALS (7 sets, daily range): BP systolic 117–176; BP diastolic 81–103
[2023-01-14] MEDS: ACETAMINOPHEN 325 MG TAB PO PRN ×3 (05:23→20:33)
[2023-01-14] MEDS: cloNIDine HCL 0.1 MG TAB PO PRN ×2 (05:33→13:09)
[2023-01-14] MEDS: SODIUM CHLOR 0.9% PF (SALINE LOCK) 10ML VIAL/SYR IV SCH ×3 (06:16→21:13)
[2023-01-14 06:26] LABS: Basophils # (auto) 0 10 ^3/uL (0-0.2); Basophils % (auto) 0.4 % (0.0-2.0); Eosinophils # (auto) 0 10 ^3/uL (0-0.8); Hematocrit 33.9 % (41.0-53.0); Hemoglobin 11.5 g/dL (13.5-17.5); Lymphocytes # (auto) 0.7 10 ^3/uL (0.4-5.4); Lymphocytes % (auto) 6.2 % (10.0-50.0); Mean Corpuscular Hemoglobin 32.8 pg (28.0-32.0); Mean Corpuscular Volume 96.5 fL (80.0-100.0); Monocytes # (auto) 0.6 10 ^3/uL (0-1.3); Monocytes % (auto) 5.2 % (0.0-12.0); Neutrophils # (auto) 9.9 10 ^3/uL (1.6-8.6); Neutrophils % (auto) 88.2 % (37.0-80.0); Red Blood Cells 3.51 10^6/uL (4.5-5.90); Red Cell Distribution Width 13.5 % (11.8-14.3); White Blood Cell 11.2 10^3/uL (4.4-10.8)
[2023-01-14 06:51] LABS: BUN/Creatinine Ratio 32.4 (10.0-20.0)
[2023-01-14] MEDS: FAMOTIDINE (10MG/ML) 2ML VL IV SCH (09:29)
[2023-01-14] MEDS: DexAMETHasone SOD PHOS 10MG/1ML VIAL INJ IV SCH (09:29)
[2023-01-14] MEDS: AZITHROMYCIN 500MG/ 250ML 250 ML IV SCH (09:29)
[2023-01-14] MEDS ORDERED: ENALAPRIL MALEATE 10 MG TAB PO ONE (14:30)
[2023-01-14] MEDS ORDERED: METOPROLOL TARTRATE 25 MG TAB PO ONE (14:30)
[2023-01-14] MEDS: cefTRIAXone 1GM/50ML D5W 50 ML IV SCH (21:13)
[2023-01-14] MEDS: METOPROLOL TARTRATE 25 MG TAB PO SCH (21:14)
[2023-01-15] MEDS: ACETAMINOPHEN 325 MG TAB PO PRN ×2 (03:14→10:06)
[2023-01-15 05:00] VITALS: BP 140/76
[2023-01-15] MEDS: SODIUM CHLOR 0.9% PF (SALINE LOCK) 10ML VIAL/SYR IV SCH ×2 (06:24→14:00)
[2023-01-15 06:59] LABS: Basophils # (auto) 0 10 ^3/uL (0-0.2); Basophils % (auto) 0.1 % (0.0-2.0); Eosinophils # (auto) 0 10 ^3/uL (0-0.8); Eosinophils % (auto) 0.1 % (0.0-7.0); Hematocrit 35.7 % (41.0-53.0); Hemoglobin 11.7 g/dL (13.5-17.5); Lymphocytes # (auto) 0.9 10 ^3/uL (0.4-5.4); Mean Corpuscular Hemoglobin 32.9 pg (28.0-32.0); Mean Corpuscular Hgb Conc. 32.8 g/dL (32.0-36.0); Monocytes # (auto) 0.8 10 ^3/uL (0-1.3); Monocytes % (auto) 7.4 % (0.0-12.0); Neutrophils # (auto) 9.7 10 ^3/uL (1.6-8.6); Neutrophils % (auto) 84.4 % (37.0-80.0); Red Blood Cells 3.57 10^6/uL (4.5-5.90); Red Cell Distribution Width 13.7 % (11.8-14.3); White Blood Cell 11.5 10^3/uL (4.4-10.8)
[2023-01-15 09:00] VITALS: BP 140/98
[2023-01-15] MEDS ORDERED: AZITHROMYCIN 250 MG TAB PO SCH (10:00)
[2023-01-15] MEDS ORDERED: predniSONE 20 MG TAB PO SCH (10:00)
[2023-01-15] MEDS ORDERED: FAMOTIDINE 20 MG TAB PO SCH (10:00)
[2023-01-15] MEDS ORDERED: ENALAPRIL MALEATE 10 MG TAB PO SCH (10:00)
[2023-01-15] MEDS: METOPROLOL TARTRATE 25 MG TAB PO SCH (10:03)
[2023-01-15] MEDS ORDERED: LEVO750T8 PO (11:37)
[2023-01-15 13:00] VITALS: BP 158/97
[2023-01-15 14:30] VITALS: BP 156/75
== END 2023-01-15 15:38 | disposition home or self-care (01) | DRG 871 ==
LOC: EDBD 15:07 → ER 15:07 → TELE 22:43 → TELE-WESTW 01-11 11:36 → WEST WING 01-14 02:51
PROVIDERS: ADMIT Nurse Practitioner Family; ATTEND Internal Medicine
DX: A41.9 Sepsis, unspecified organism (principal); J18.9 Pneumonia, unspecified organism; J96.01 Acute respiratory failure with hypoxia; N17.0 Acute kidney failure with tubular necrosis; J44.0 Chronic obstructive pulmonary disease with (acute) lower respiratory infection; N39.0 Urinary tract infection, site not specified; J44.1 Chronic obstructive pulmonary disease with (acute) exacerbation; I50.42 Chronic combined systolic (congestive) and diastolic (congestive) heart failure; I11.0 Hypertensive heart disease with heart failure; R33.9 Retention of urine, unspecified; Z20.822 Contact with and (suspected) exposure to COVID-19; K21.9 Gastro-esophageal reflux disease without esophagitis; R79.89 Other specified abnormal findings of blood chemistry; Z79.899 Other long term (current) drug therapy; Z85.9 Personal history of malignant neoplasm, unspecified; Z87.442 Personal history of urinary calculi; Z85.51 Personal history of malignant neoplasm of bladder
CPT/HCPCS: 36415; 70450; 71045; 71275; 73030; 80048; 80053; 81001; 83690; 83735; 83880; 84484; 85025; 85379; 85610; 85730; 87040; 87086; 87088; 87186; 87426; 93306; 96365; 96367; 96372; 96375; 97163; G0378; J0696; J1100; J3490; J7060

== ENCOUNTER 2023-11-12 08:59 | Emergency (ER) | payer OTHER, MEDICARE ==
[~2023-11-12] VITALS: Ht 180.3 cm; Wt 75.0 kg
[~2023-11-12 08:59] MED LIST changes: -AZIT-43 PO; -LEVO500T31 PO; +LEVO750T8 PO; -PRED20TA2 PO
[2023-11-12 10:23] LABS: Basophils # (auto) 0 10 ^3/uL (0-0.2); Basophils % (auto) 0.2 % (0.0-2.0); Eosinophils # (auto) 0 10 ^3/uL (0-0.8); Eosinophils % (auto) 0.6 % (0.0-7.0); Hematocrit 43.6 % (41.0-53.0); Hemoglobin 14.6 g/dL (13.5-17.5); Lymphocytes # (auto) 2.7 10 ^3/uL (0.4-5.4); Lymphocytes % (auto) 37.3 % (10.0-50.0); Mean Corpuscular Hgb Conc. 33.5 g/dL (32.0-36.0); Mean Corpuscular Volume 95.6 fL (80.0-100.0); Monocytes # (auto) 0.5 10 ^3/uL (0-1.3); Monocytes % (auto) 7.2 % (0.0-12.0); Neutrophils % (auto) 54.7 % (37.0-80.0); Nucleated Red Blood Cells % 0.1 %; Red Blood Cells 4.56 10^6/uL (4.5-5.90); White Blood Cell 7.3 10^3/uL (4.4-10.8)
[2023-11-12] MEDS: ALBUTEROL SULF 2.5 MG/0.5ML(0.5%) NEB SOLN HHN ONE (10:27)
[2023-11-12] MEDS: IPRATROPIUM BROM 0.5 MG/2.5ML INH SOL HHN ONE (10:27)
[2023-11-12 10:30] VITALS: PULSE 57; RESP 28; O2SAT 93
[2023-11-12 10:35] LABS: Alanine Aminotransferase 23 U/L (7-40); Albumin 4.4 g/dL (3.2-4.8); Alkaline Phosphatase 95 U/L (46-116); Anion Gap 8 (5-15); Aspartate Aminotransferase 27 U/L (13-40); BUN/Creatinine Ratio 21.7 (10.0-20.0); Bilirubin, Total 1.4 mg/dL (0.2-1.0); Blood Urea Nitrogen 38 mg/dL (9-23); Calcium 9.3 mg/dL (8.5-10.1); Carbon Dioxide 23 mmol/L (20-30); Chloride 113 mmol/L (98-107); Glucose 117 mg/dL (74-106); Potassium 4.3 mmol/L (3.5-5.1); Sodium 144 mmol/L (136-145); Total Protein 6.4 g/dL (5.7-8.2)
[2023-11-12] MEDS: DexAMETHasone SOD PHOS 10MG/1ML VIAL INJ IV ONE (10:37)
[2023-11-12] MEDS: SODIUM CHLORIDE 0.9% 1,000 ML IV ONE (11:15)
[2023-11-12 12:04] LABS: Magnesium 2.3 mg/dL (1.6-2.6)
[2023-11-12 15:04] LABS: Urine Bacteria None Seen /hpf (None Seen)
[2023-11-12 15:13] LABS: Urine Blood Negative /uL (Negative); Urine Clarity Clear (Clear); Urine Color Yellow (Yellow); Urine Mucus FEW (None Seen); Urine Protein, UAD TRACE (Negative); Urine Specific Gravity 1.016 (1.001-1.035); Urine Urobilinogen Normal (Negative); Urine WBC 52 /hpf (0 - 3)
[2023-11-12 16:42] LABS: COVID19 ANTIGEN SOFIA FIA NEGATIVE (NEGATIVE); Rapid Influenza A Negative (Negative); Rapid Influenza B Negative (Negative)
[2023-11-12] MEDS ORDERED: PRED20TA2 PO (16:57)
[2023-11-12] MEDS ORDERED: ALBU108A5 IN (16:57)
[2023-11-12 17:00] VITALS: BP 103/64; PULSE 86; RESP 21; O2SAT 100
== END 2023-11-12 18:33 | disposition home or self-care (01) ==
LOC: EDBD 08:59 → ER 08:59
DX: J20.9 Acute bronchitis, unspecified (principal); B34.9 Viral infection, unspecified; I11.0 Hypertensive heart disease with heart failure; I50.9 Heart failure, unspecified; J44.9 Chronic obstructive pulmonary disease, unspecified; K21.9 Gastro-esophageal reflux disease without esophagitis; Z87.891 Personal history of nicotine dependence; Z20.822 Contact with and (suspected) exposure to COVID-19; Z87.442 Personal history of urinary calculi
CPT/HCPCS: 36415; 36600; 71045; 80053; 81001; 82805; 83605; 83735; 83880; 84484; 85025; 87040; 87426; 87804; 93005; 94640; 96361; 96374; 99285; J1100; J7030; J7644